=== PATIENT | female | born 1955 | race Caucasian/White ===

== ENCOUNTER 2024-04-11 17:39 | Emergency (ER) | payer MEDICARE, SELFPAY ==
[2024-04-11] VITALS (32 sets, daily range): BP systolic 150–178; BP diastolic 58–112; PULSE 47–78; RESP 8–20; TEMP 36.2–36.7; O2SAT 96–99
[2024-04-11 19:17] LABS: Lactate 0.8 mmol/L (<or=2.0)
[2024-04-11 19:21] LABS: Abs Immature Grans 0.01 10^3/uL (0.0-0.06); Absolute Basophil Count 0.06 10^3/uL (0.0-0.2); Absolute Eosinophil Count 0.22 10^3/uL (0.0-0.7); Absolute Lymphocyte Count 3.02 10^3/uL (1.2-3.4); Absolute Monocyte Count 0.52 10^3/uL (0.1-0.8); Absolute Neutrophil Count 2.86 10^3/uL (1.2-6.7); Basophils % 0.9 %; Eosinophils % 3.3 %; HCT 42.9 % (36.0-46.0); HGB 14.6 g/dL (11.2-15.7); Immature Grans % 0.1 %; Lymphocytes % 45.1 %; MCH 29.1 pg (27.0-33.0); MCV 86 fL (80-95); MPV 11.2 fL (8.0-11.0); Monocytes % 7.8 %; Neutrophils % 42.8 %; Platelet Count 259 10^3/uL (130-400); RBC 5.01 10^6/uL (3.93-5.22); RDW 13.3 % (11.7-14.6); RDW-SD 41.5 fL; WBC 6.69 10^3/uL (4.4-10.8)
--- NOTE | 2024-04-11 19:37 | W.ED.GENAD ---
Discharge Plan Disposition Patient Disposition: Home Condition: Stable Discharge Details Clinical Impression: Pelvic congestion syndrome, Elevated troponin level Primary Care Provider: None,None ED Provider: Karla Benson Home Meds and New Rx's Prescriptions: New atorvastatin 40 mg tablet 40 mg PO DAILY Qty: 30 0RF aspirin 81 mg capsule 81 mg PO DAILY Qty: 30 0RF Discharge Instructions Instructions: Lowering Your Risk of Heart Disease Additional Instructions: You were seen in the emergency department today for evaluation of abdominal pain. In our department had a full physical examination performed, had laboratory studies and a CT of your abdomen that showed that your symptoms are most likely due to pelvic congestion syndrome, dilation of the blood vessels in the pelvis you will be referred to a primary care provider to follow-up on this visit, and should trial Tylenol and ibuprofen as needed for management of your pain. You were incidentally noted to have an elevation in your troponin, a cardiac enzyme that looks at damage to heart muscle. This decreased over your time in the emergency department and your EKG does not show signs of a heart attack happening right now. It is certainly possible that you had a heart attack sometime in the last few weeks, but it is also possible that this level was elevated for another reason. Out of an abundance of caution, we have elected to start you on a baby aspirin daily as well as a statin, which can reduce cholesterol. You will be referred to the primary care provider to discuss this finding as well, and they should refer you to cardiology for stress testing, ultrasound/echo, and any other testing that they feel is warranted. Reasons to come back to the emergency department includes chest pain, shortness of breath, nausea or vomiting, sudden or severe worsening of your abdominal pain, and any other symptoms cause you concern. Please follow-up with your primary care provider in the next few days to discuss this visit and any symptoms that change, worsen, or persist. Thank you for allowing us to be part of your care. HPI General Mode of arrival: ambulatory. Date/Time Provider Initiated Documentation: 04/11/24 17:55. Limitations to Documentation: no limitations. Information obtained by: patient, family and old records reviewed. HPI Narrative: HPI: This is a 69-year-old female patient without significant past medical history surgical history including cholecystectomy and hysterectomy, , is presenting for evaluation of left lower quadrant abdominal pain. The patient reports that she has had this pain intermittently since January, has not had any workup or management for it. She is here because she is concerned that she has diverticulitis, states that she was told she had diverticulosis on a colonoscopy back in 2021. She states that she does have a diet that includes quite a few seeds and nuts. States that she has not had any fever, vomiting, but has noted a change in the consistency of her stools towards more soft. No vomiting of blood or blood in her stool. She has not tried any medications in the outpatient environment to manage the symptoms. She has otherwise been in her normal state of health and is without acute complaint. Exam: Gen: Awake and alert, in no apparent distress HEENT: Non-icteric sclera Neck: Supple Lungs: No apparent respiratory distress, normal respiratory effort. CV: Appears well perfused, heart with regular rhythm, strong distal pulses Abdomen: Non-distended, soft, nontender to palpation without rigidity, rebound, or guarding MSK: Moves 4 extremities without apparent limitation in ROM Skin: Visualized skin without rashes, cyanosis. Neuro: Normal Gait, no obvious focal deficits or facial asymmetry. Speaks in full, clear sentences. Psych: Appropriate for situation. MDM: This is a 69-year-old female patient presenting for evaluation of abdominal pain. My differential includes but is not limited to diverticulitis, certainly considered other intra-abdominal pathologies including appendicitis, bowel obstruction. The patient has no urinary symptoms or flank pain to increase my concern for urinary tract infection, nephrolithiasis. Considered pancreatitis, hepatitis. The patient's physical examination and history are less concerning for mesenteric ischemia or aortic pathology. We will obtain laboratory studies to include CBC, CMP, magnesium, troponin, and lipase. I will obtain an CT of her abdomen and pelvis to better characterize any abnormalities. At this time the patient is not desiring of any medications for management of pain or nausea. ED Course: I independently interpreted the laboratory studies, which show no significant leukocytosis, anemia, or thrombocytopenia. The chemistry panel is without evidence of electrolyte abnormality, kidney dysfunction, or liver injury. Lactate was low at 0.8, lipase low, but her troponin is noted to be elevated to 77. For this reason I did obtain an EKG, patient states that she is not experiencing chest pain and has not had an event where she had chest pain in the recent weeks. She denies diaphoresis, shortness of breath, or back pain. EKG reviewed by myself, showing a sinus bradycardia with a rate of 50, T wave inversions in leads V1 and V2 but no evidence of STEMI. Troponins were trended and are noted to be downtrending, 76 than 70, and repeat EKGs without dynamic change. Her CT was reviewed by myself, and shows pelvic congestion syndrome without diverticulitis or other acute abnormality. This finding was shared with the patient, who has just moved to the area and does not have a primary care provider yet. I will provide a referral for one so they can follow-up on any ongoing symptoms, and recommended conservative management initially with Tylenol and ibuprofen. Given her concerning troponin elevation, my differential was broadened to include recent AL, I have a lower concern for active ischemia given the lack of anginal symptoms and dynamic change on her EKGs. I did reach out to cardiology with [facility] to review the case, and they recommended initiation of atorvastatin 40 mg and a baby aspirin while awaiting outpatient workup to include stress test, echo, etc. The patient's primary care provider should be made aware of the patient's recent visit, and the need to have her referred to cardiology for further workup and management. At this time, the patient has had a full medical evaluation and is safe for discharge to home. They are hemodynamically stable, ambulatory, and tolerating PO. They are understanding of the follow-up plan and return precautions. They left our facility without incident. Karla Benson MD Related Data Home Medications ?Medication ?Instructions ?Recorded ?Confirmed aspirin 81 mg capsule 81 mg PO DAILY #30 caps 04/11/24 atorvastatin 40 mg tablet 40 mg PO DAILY #30 tabs 04/11/24 Previous Rx's ?Medication ?Instructions ?Recorded aspirin 81 mg capsule 81 mg PO DAILY #30 caps 04/11/24 atorvastatin 40 mg tablet 40 mg PO DAILY #30 tabs 04/11/24 Allergies Allergy/AdvReac Type Severity Reaction Status Date / Time bee venom protein (honey bee) Allergy swollen Verified 04/11/24 17:49 doxycycline Allergy excessive Verified 04/11/24 17:50 salivation General Stated Complaint: Abd Prob JADE: 3 Course Vital Signs Vital signs: Vital Signs Temperature 36.2 C L 04/11/24 17:41 Pulse 55 L 04/11/24 17:41 Respiratory Rate 16 04/11/24 17:41 Blood Pressure 170/79 H 04/11/24 17:41 Pulse Oximetry 98 04/11/24 17:41 Temperature 36.2 C L 04/11/24 17:41 Temperature Source Oral 04/11/24 17:41 Pulse 55 L 04/11/24 17:41 Respiratory Rate 16 04/11/24 17:41 Blood Pressure 170/79 H 04/11/24 17:41 Pulse Oximetry 98 04/11/24 17:41 Oxygen Delivery Method Room Air 04/11/24 17:41 Oxygen Flow Rate 0 04/11/24 17:41 Pain Level 2 04/11/24 17:41 Lab/Test Results Lab/Test Results: Laboratory Tests Range/Units 04/11/24 19:07 WBC (4.4-10.8) 10^3/uL 6.69 RBC (3.93-5.22) 10^6/uL 5.01 Hgb (11.2-15.7) g/dL 14.6 Hct (36.0-46.0) % 42.9 MCV (80-95) fL 86 MCH (27.0-33.0) pg 29.1 MCHC (32.0-36.0) % 34.0 RDW (11.7-14.6) % 13.3 Plt Count (130-400) 10^3/uL 259 MPV (8.0-11.0) fL 11.2 H Immature Gran % % 0.1 Neutrophils % % 42.8 Lymphocytes % % 45.1 Monocytes % % 7.8 Eosinophils % % 3.3 Basophils % % 0.9 Nucleated RBC % (0.0-0.3) % 0.0 Absolute Neutrophils (1.2-6.7) 10^3/uL 2.86 Absolute Lymphocytes (1.2-3.4) 10^3/uL 3.02 Absolute Monocytes (0.1-0.8) 10^3/uL 0.52 Absolute Eosinophils (0.0-0.7) 10^3/uL 0.22 Absolute Basophils (0.0-0.2) 10^3/uL 0.06 VBG Lactate (<or=2.0) mmol/L 0.8 Medical Decision Making Quality:SDOH Health Related Social Needs: No Data to Display PFSH All Active Problems (Updated 04/11/24 @ 23:19 by Karla Benson MD) Elevated troponin level (Acute) Pelvic congestion syndrome (Acute) Social History Smoking/Tobacco Use Status: Never Smoking risk assessment performed?: Yes Alcohol Intake: current Alcohol Intake frequency: holidays/special occasions only Alcohol type: beer and wine Substance use type: does not use PAWSS Have you Been Recently Intoxicated or Drunk Within the Last 30 days?: No Have you Ever Experienced Previous Episodes of Alcohol Withdrawal?: No Have you ever Experienced Withdrawal Seizures?: No Have you ever Experienced Delirium Tremens(DT)s?: No Have you ever undergone Alcohol Rehabilitation Treatment (i.e, inpt ot outpatient treatment programs)?: No Have you ever Experienced Blackouts?: No Have you ever Combined Alcohol with other Downers within the last 90 days?: No Have you ever Combined Alcohol with any other Substance of Abuse during the last 90 days?: No Positive Blood Alcohol level on Presentation? [PCS.BAL]: No Evidence of Increased Autonomic Activity (i.e. HR>120, tremor, sweating, agitation, nausea)?: No Result: 0
--- NOTE | 2024-04-11 20:00 | RT.EKG_ITS ---
APPROVED REPORT Exam: Resting ECG Reason for Exam: Monique diggs Patient Location: E HR:50 bpm ECG Measurements Heart Rate 50 AXIS [place] 149 P 63 QRSd 94 QRS 47 QT 470 T 68 QTc 428 Conclusion Sinus bradycardia, rate 50 No interval abnormalities No STEMI T wave inversion V1, V2, no priors available for comparison
[2024-04-11 20:07] LABS: ALT 28 U/L (14-59); AST 21 U/L (15-37); Alkaline Phosphatase 61 U/L (46-116); Anion Gap 7.1 mmol/L (3-11); BUN 17 mg/dL (7-18); Bilirubin, Total 0.87 mg/dL (0.2-1.0); CO2 29.9 mmol/L (21.0-32.0); CREATININE 0.8 mg/dL (0.55-1.02); Calcium 9.3 mg/dL (8.5-10.1); Chloride 106 mmol/L (98-107); Estimated GFR 79.22 (mL/min/1.73m2); Glucose 107 mg/dL (74-106); Magnesium 1.9 mg/dL (1.8-2.4); Potassium 3.9 mmol/L (3.5-5.1); Sodium 143 mmol/L (136-145); Total Protein 7.5 g/dL (6.4-8.2)
[2024-04-11 20:08] LABS: Troponin I 77 ng/L (<or=51)
[2024-04-11 20:20] LABS: Lipase 45 U/L (<78)
[2024-04-11] MEDS: Omnipaque 350 MG/ML 100 ML BTL IJ (20:31)
[2024-04-11] MEDS: Normal Saline - Diluent 50 ML VIAL IJ (20:32)
[2024-04-11] MEDS: Normal Saline Flush 10 ML SYR IVP (20:35)
[2024-04-11 20:46] LABS: Troponin I 75 ng/L (<or=51)
--- NOTE | 2024-04-11 20:46 | DI.CT_ITS ---
Exam(s) CT ABDOMEN PELVIS W EXAM: CT ABDOMEN PELVIS W CLINICAL HISTORY: LLQ pain, eval diverticulitis. TECHNIQUE: Imaging Protocol: Axial computed tomography images with coronal and sagittal reformatted images were created and reviewed CONTRAST MATERIAL: Intravenous: Omnipaque 350 Contrast volume:75 ml Oral: no COMPARISON: No exams were available for comparison FINDINGS: ABDOMEN and PELVIS: Lung Bases: No acute findings. Liver: Normal density. No suspicious mass. Gallbladder and biliary tract: Status post cholecystectomy. No biliary dilation. Pancreas: Normal density. No abnormal calcifications or inflammatory process. No evidence of mass. Spleen: Normal. Kidneys: Normal size, contour and axis. No radiodense stones. No obstructive uropathy. No suspicious masses seen. Adrenal glands: No masses seen. Vasculature: Abdominal aorta non-dilated. Mildly dilated left pelvic veins could indicate pelvic c ongestion syndrome. No thrombosis is visible. Soft tissues: Unremarkable. Bladder: No gross wall thickening. No calculi.No focal mass. Bowel: No obstruction. Diverticulosis. No evidence of diverticulitis. Moderate quantity of stool. No bowel wall thickening. Appendix is normal. The Peritoneal cavity: No ascites. No focal collection. No mesenteric inflammatory response. No free air . Bones: Unremarkable for age. Reproductive organs: Hysterectomy. Lymph nodes: No pathologically enlarged lymph nodes. IMPRESSION:: No acute abnormality in the abdomen or pelvis. RADIATION DOSE DELIVERED: 297.97mGy.cm Total DLP DATA REPOSITORY: All CT scans at this facility are submitted to the National Radiology Data Registry (NRDR) Dose Index Registry (DIR) with the [employer] (A[employer]). RADIATION OPTIMIZATION: All CT scans at this facility use at least one of these dose optimization te chniques: automated exposure control; mA and/or kV adjustment per patient size (includes targeted exa ms where dose is matched to clinical indication); or iterative reconstruction.
--- NOTE | 2024-04-11 21:00 | DI.RAD_ITS ---
Exam(s) XR CHEST 2V PA LATERAL EXAM: XR CHEST 2V PA LATERAL CLINICAL HISTORY: Abd pain with elevated trop TECHNIQUE: 2D digital imaging was performed. Two views. COMPARISON: No exams were available for comparison FINDINGS: HEART: Normal size. Aorta: Not dilated. PULMONARY VASCULATURE: Normal. MEDIASTINUM: Unremarkable. LUNGS: Clear. Mildly hyperinflated. PLEURAL SPACE: No pleural effusion or pneumothorax. BONE:Unremarkable for age. SOFT TISSUES: Unremarkable. IMPRESSION: No acute abnormality. DATA REPOSITORY: RADIATION DOSE DELIVERED:
--- NOTE | 2024-04-11 21:51 | DI.VRAD_ITS ---
PROCEDURE INFORMATION: Exam: CT Abdomen And Pelvis With Contrast Exam date and time: 04/11/2024 8:38 PM Age: 69 years old Clinical indication: Other: Llq pain, eval diverticulitis TECHNIQUE: Imaging protocol: Computed tomography of the abdomen and pelvis with contrast. COMPARISON: No relevant prior studies available. FINDINGS: Lungs: Lingula atelectasis Liver: The liver is unremarkable. Gallbladder and biliary ducts: Post cholecystectomy. Pancreas: The pancreas is unremarkable. Spleen: No splenomegaly. No lesions. Adrenal glands: The adrenal glands are unremarkable. Kidneys and ureters: Bilateral renal cysts are present, as well as other subcentimeter hypodensities which are too small to characterize. Stomach and bowel: Moderate stool throughout the colon and rectum. No evidence of bowel obstruction. No pericolonic inflammatory stranding. Colonic diverticulosis without evidence of diverticulitis. Appendix: Appendix is not seen but there is no pericecal inflammatory change. Intraperitoneal space: Unremarkable. No free air. No significant fluid collection. Vasculature: Patent vessels without evidence of aneurysm, dissection, occlusion or critical stenosis. Dilated left pelvic vessels, this can be seen in pelvic congestion syndrome. Lymph nodes: No mesentery adenopathy. No edema. Urinary bladder: No focal wall thickening of the urinary bladder. Reproductive: Prior hysterectomy Bones/joints: No acute osseous abnormality. Soft tissues: Soft tissues are unremarkable as visualized. IMPRESSION: Dilated left pelvic vessels, this can be seen in pelvic congestion syndrome. Colonic diverticulosis without evidence of diverticulitis. Dictated and Authenticated by: Maricruz Yusuf MD. Orderin [facility] Timmy Acosta MD
--- NOTE | 2024-04-11 21:53 | DI.VRAD_ITS ---
PROCEDURE INFORMATION: Exam: XR Chest Exam date and time: 04/11/2024 9:24 PM Age: 69 years old Clinical indication: Other: Abd pain with elevated trop TECHNIQUE: Imaging protocol: Radiologic exam of the chest. Views: 2 views. COMPARISON: CT ABDOMEN PELVIS W 04/11/2024 8:38 PM FINDINGS: Lungs: Unremarkable. No consolidation. Pleural spaces: Unremarkable. No pleural effusion. No pneumothorax. Heart/Mediastinum: Unremarkable. No cardiomegaly. Bones/joints: Unremarkable. IMPRESSION: No acute findings. Dictated and Authenticated by: Maricruz Yusuf MD. Orderin [facility] Timmy Acosta MD
--- NOTE | 2024-04-11 22:30 | RT.EKG_ITS ---
APPROVED REPORT Exam: Resting ECG Reason for Exam: Elevated trop repeat Patient Location: E HR:48 bpm ECG Measurements Heart Rate 48 AXIS [place] 153 P 65 QRSd 96 QRS 41 QT 483 T 62 QTc 433 Conclusion Sinus bradycardia, rate 48 T wave inversion V1, V2 No interval abnormalities, no STEMI No changes from priors
[2024-04-11 22:40] LABS: Troponin I 70 ng/L (<or=51)
[2024-04-11] MEDS: Atorvastatin 40 MG TAB PO (23:35)
[2024-04-11] MEDS: Aspirin 81 MG CHEW CH (23:35)
--- NOTE | 2024-04-12 07:54 | NUR.NOTE ---
Access chart to see if the PCP referral was done. Nursing Note:
== END 2024-04-11 23:38 | disposition home or self-care (01) ==
PROVIDERS: Emergency Provider Emergency Medicine
DX: N94.89 Other specified conditions associated with female genital organs and menstrual cycle (principal); R79.89 Other specified abnormal findings of blood chemistry; R10.32 Left lower quadrant pain
CPT/HCPCS: 36415; 80053; 83690; 93005; 99285; 71046; 74177; 83605; 83735; 84484; 85025; 93010; 99284; J3490

== ENCOUNTER 2024-05-12 01:39 | Outpatient (CLI) | payer MEDICARE, SELFPAY ==
--- NOTE | 2024-05-12 | DI.US_ITS ---
Exam(s) US PELVIS TRANSVAGINAL EXAM: US PELVIS TRANSVAGINAL CLINICAL HISTORY: PELVIS AND PERINEAL PAIN,R10.2 TECHNIQUE: Transabdominal and transvaginal imaging was performed using standard protocol. COMPARISON: CT CT ABDOMEN PELVIS W from 04/11/2024 FINDINGS: UTERUS: Hysterectomy. OVARIES: Not visualized. No ovarian masses identified on the previous CT. The ovaries are not visualized on prior CT. CUL-DE-SAC: Free fluid: None. IMPRESSION: Status post hysterectomy. The ovaries were unable to be visualized. DATA REPOSITORY:
== END 2024-05-12 01:59 ==
LOC: DI 01:39
PROVIDERS: PCP Family Medicine; Visit Provider Family Medicine
DX: R10.2 Pelvic and perineal pain (principal); Z90.710 Acquired absence of both cervix and uterus
CPT/HCPCS: 76830; 76856

== ENCOUNTER 2024-06-28 07:47 | Outpatient (CLI) | payer MEDICARE, SELFPAY ==
--- NOTE | 2024-06-28 07:45 | RT.EKG_ITS ---
APPROVED REPORT Exam: Resting ECG Reason for Exam: PVC Patient Location: O HR:64 bpm ECG Measurements Heart Rate 64 AXIS [place] 137 P 67 QRSd 115 QRS 38 QT 402 T 60 QTc 415 Conclusion Sinus rhythm...normal P axis, V-rate 50- 99 Nondiagnostic anterior T wave abnormality
== END 2024-06-28 07:48 | disposition home or self-care (01) ==
LOC: DI.CARD 07:47
PROVIDERS: PCP Family Medicine; Visit Provider Internal Medicine Cardiovascular Disease
DX: I49.3 Ventricular premature depolarization (principal)
CPT/HCPCS: 93010

== ENCOUNTER → 2024-06-28 12:54 | Outpatient (BNVA) | payer MEDICARE, SELFPAY | PROVIDERS: PCP Family Medicine; Referring Provider Family Medicine; Visit Provider Internal Medicine Cardiovascular Disease | DX: I49.3 Ventricular premature depolarization (principal) | CPT/HCPCS: 93005; 99214 ==

== ENCOUNTER → 2025-01-13 01:43 | Outpatient (CLI) | payer MEDICARE, SELFPAY ==
--- NOTE | 2025-01-13 08:25 | DI.MAMMO_ITS ---
Exam(s) MAMMO SCREENING EXAM: MAMMO SCREENING CLINICAL HISTORY: SCREENING MAMMO Z12.31 TECHNIQUE: Mammograms were interpreted according to the usual protocol including computer analysis with CAD system, tomosynthesis and C-view imaging. COMPARISON: 2021 through 2023 FINDINGS: The breasts are composed of scattered fibroglandular densities, Breast Density category B. No suspicious masses or suspicious microcalcifications are seen. No skin thickening or abnormal axillary lymph nodes are seen. There has been no significant change from prior exams. IMPRESSION: BI-RADS Category 1, Negative mammogram Yearly screening mammography is recommended. Breast Density - Category B - There are scattered areas of fibroglandular density. Breast density Category C or D implies that the patient has dense breast tissue. Dense breast tissue can make it harder to find cancer on a mammogram. Dense breast tissue is also associated with an increased risk of breast cancer. This information about the result of the mammogram report was provided to the patient to raise their awareness. Use this report when you speak with the patient about their risks for breast cancer, which includes their family history. At that time, you may recommend additional screening tests (Ultrasound or MRI) as these tests may add significant information. A negative radiographic report should not delay biopsy if a dominant or clinically suspicious mass is present. Up to ten percent of cancers are not identified on mammography. A negative report may reinforce clinical impression. Adenosis and dense breasts may obscure an underlying neoplasm. False positive reports average 6 to 10%. Patient will receive a letter notifying them of these results.
== END ==
LOC: DI 01:43
PROVIDERS: PCP Family Medicine; Visit Provider Family Medicine
DX: Z12.31 Encounter for screening mammogram for malignant neoplasm of breast (principal); R92.323 Mammographic fibroglandular density, bilateral breasts
CPT/HCPCS: 77063; 77067